=== PATIENT | male | born 1950 | race Caucasian/White ===

== ENCOUNTER 2016-11-04 18:59 | Outpatient (CLI) | payer MEDICARE, OTHER | END 2016-11-04 19:00 | disposition EMS.NT | LOC: EMS 18:59 | PROVIDERS: ATTEND Surgery | DX: Z04.1 Encounter for examination and observation following transport accident (principal); V89.2XXA Person injured in unspecified motor-vehicle accident, traffic, initial encounter; Y92.410 Unspecified street and highway as the place of occurrence of the external cause ==

== ENCOUNTER 2016-11-04 22:12 | Emergency (ER) | payer OTHER, MEDICARE ==
[2016-11-04 22:24] VITALS: BP 145/78
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
== END 2016-11-04 23:25 | disposition home or self-care (01) ==
LOC: ED 22:12
DX: S39.012A Strain of muscle, fascia and tendon of lower back, initial encounter (principal); S29.012A Strain of muscle and tendon of back wall of thorax, initial encounter; V43.62XA Car passenger injured in collision with other type car in traffic accident, initial encounter; Y92.488 Other paved roadways as the place of occurrence of the external cause
CPT/HCPCS: 99283

== ENCOUNTER 2020-08-21 11:43 | Outpatient (CLI) | payer MEDICARE, OTHER ==
[2020-08-21 20:07] LABS: BASOPHILS # (AUTO) 0.1 10^3/uL (0.0-0.1); BASOPHILS % (AUTO) 0.8 %; EOSINOPHILS # (AUTO) 0.1 10^3/uL (0.0-0.7); EOSINOPHILS % (AUTO) 1.5 %; HCT - HEMATOCRIT 43.1 % (42.0-52.0); LYMPHOCYTES # (AUTO) 1.4 10^3/uL (1.5-3.5); MEAN CORPUSCULAR HEMOGLOBIN 30.4 pg (27.0-31.0); MEAN CORPUSCULAR HGB CONC 32.5 g/dL (32.0-36.0); MEAN CORPUSCULAR VOLUME 93.5 fL (80.0-94.0); MEAN PLATELET VOLUME 12.9 fL (7.4-11.4); MONOCYTES # (AUTO) 0.4 10^3/uL (0.0-1.0); MONOCYTES % (AUTO) 6.3 %; NEUTROPHILS % (AUTO) 67.2 %; PLT - PLATELET COUNT 177 10^3/uL (130-450); RED BLOOD COUNT 4.61 10^6/uL (4.70-6.10); RED CELL DISTRIBUTION WIDTH 13.3 % (12.0-15.0)
[2020-08-21 20:25] LABS: ALBUMIN 4.3 g/dL (3.2-5.5); ALBUMIN/GLOBULIN RATIO 1.9 (1.0-2.2); ALKALINE PHOSPHATASE 56 IU/L (42-121); ALT ALANINE AMINOTRANSFERASE 19 IU/L (10-60); AST ASPARTATE AMINOTRANSFERASE 21 IU/L (10-42); BILIRUBIN,TOTAL 0.7 mg/dL (0.2-1.0); BUN - BLOOD UREA NITROGEN 26 mg/dL (6-20); CALCIUM 9.2 mg/dL (8.5-10.3); CARBON DIOXIDE - CO2 28 mmol/L (21-32); CHLORIDE 104 mmol/L (101-111); CHOL/HDL RATIO 2.8 (<5.0); CHOLESTEROL 254 mg/dL; CREATININE 0.7 mg/dL (0.6-1.2); CRP - C-REACTIVE PROTEIN 1.1 mg/dL (0-1.0); GFR - MDRD 111 (>89); GLUCOSE 95 mg/dL (70-100); HDL CHOLESTEROL 92 mg/dL; LDL CHOLESTEROL,CALCULATED 133 mg/dL; LDL CHOLESTEROL,DIRECT 150 mg/dL; LDL/HDL RATIO 1.4 (<3.6); POTASSIUM 4.3 mmol/L (3.5-5.0); SODIUM 138 mmol/L (135-145); TOTAL PROTEIN 6.6 g/dL (6.7-8.2); TRIGLYCERIDES 147 mg/dL; VLDL CHOLESTEROL 29 mg/dL
[2020-08-21 20:30] LABS: PSA TOTAL 3.04 ng/mL (0.000-2.000)
[2020-08-21 20:34] LABS: THYROID STIMULATING HORMONE 1.71 uIU/mL (0.34-5.60)
[2020-08-21 20:38] LABS: ESTIMATED AVERAGE GLUCOSE 111 mg/dL (70-100); HEMOGLOBIN A1c% 5.5 % (4.27-6.07)
[2020-08-21 20:59] LABS: PSA FREE 0.5 ng/mL (0.16-2.81)
[2020-08-25 13:46] LABS: ANA SCREEN NEGATIVE (NEGATIVE)
== END 2020-08-21 11:44 | disposition home or self-care (01) ==
LOC: LAB.S 11:43
PROVIDERS: ATTEND Nurse Practitioner Family
DX: Z01.84 Encounter for antibody response examination (principal); R63.4 Abnormal weight loss; E55.9 Vitamin D deficiency, unspecified; E78.5 Hyperlipidemia, unspecified; R73.9 Hyperglycemia, unspecified
CPT/HCPCS: 36415; 80053; 80061; 82274; 82306; 83036; 83721; 84153; 84154; 84443; 85025; 85651; 86038; 86140; 86769; 87086

== ENCOUNTER 2020-08-23 12:51 | Outpatient (CLI) | payer MEDICARE, OTHER ==
[2020-08-23] MEDS ORDERED: IOPAMIDOL-300 50 ML VIAL PO ONE (14:18)
[2020-08-23] MEDS ORDERED: IOVERSOL 320 100 ML VIAL IVP ONE (14:18)
--- NOTE | 2020-08-23 18:55 | CT Report ---
PROCEDURE: Abdomen/Pelvis W INDICATIONS: BOWEL HABIT CHANGES CONTRAST: IV CONTRAST: Optiray 320 ml: 100 PO CONTRAST: Isovue 300 ml50 TECHNIQUE: After the administration of oral and IV contrast, 5 mm thick sections acquired from the diaphragms to the symphysis. 5 mm thick coronal and sagittal reformats were acquired. For radiation dose reducti on, the following was used: automated exposure control, adjustment of mA and/or kV according to dominga ent size. COMPARISON: None. FINDINGS: Image quality: Excellent. ABDOMEN: Lung bases: Lung bases are clear. Heart size is normal. Solid organs: Liver and spleen are normal in size and enhancement. Simple appearing left liver cysts are seen, with the largest measuring nearly 6 cm. Gallbladder wall does not appear thickened. Audie iary system is non dilated. Pancreas enhances normally. No adrenal nodules. Kidneys demonstrate no rmal size and enhancement, without hydronephrosis. Peritoneum and bowel: Bowel loops demonstrate normal wall thickness and caliber. No free fluid or a ir. Nodes and vessels: No retroperitoneal or mesenteric adenopathy by size criteria. Aorta and inferior vena cava are normal in size. Miscellaneous: No ventral hernias. PELVIS: Genitourinary: Bladder wall thickness is normal. Prostate calcifications can be seen. Miscellaneous: No inguinal hernias or adenopathy. Bones: No suspicious bony lesions. Apparent bone islands can be seen within the bones of the pelvis and the proximal femurs. No vertebral body compression fractures. Grade 1 L5 on S1 anterolisthesis i s seen, with associated bilateral pars defects. There is moderate to severe disc space narrowing at L 5-S1. Milder degenerative changes are seen elsewhere. IMPRESSION: No significant bowel abnormality can be seen. No masses or findings of metastatic disease can be seen. Incidental note is made of: Simple appearing liver cysts Bilateral L5 pars defects, with grade 1 L5-S1 anterolisthesis Focal L5-S1 degenerative change Reviewed by: Rocky Savage MD on 08/23/2020 5:54 PM BHUMIKA Approved by: Rocky Savage MD on 08/23/2020 5:54 PM BHUMIKA Station ID: [id number]
== END 2020-08-23 12:52 | disposition home or self-care (01) ==
LOC: LAB 12:51
PROVIDERS: ATTEND Internal Medicine
DX: R63.4 Abnormal weight loss (principal)
CPT/HCPCS: 74177; Q9967

== ENCOUNTER 2020-09-07 18:20 | Outpatient (CLI) | payer MEDICARE, OTHER | END 2020-09-07 18:21 | disposition home or self-care (01) | LOC: LAB.S 18:20 | PROVIDERS: ATTEND Internal Medicine | DX: Z01.84 Encounter for antibody response examination (principal) | CPT/HCPCS: 86769 ==

== ENCOUNTER 2022-08-01 08:00 | Outpatient (CLI) | payer MEDICARE, OTHER | END 2022-08-01 23:59 | disposition home or self-care (01) | LOC: LAB 08:00 | PROVIDERS: ATTEND Registered Nurse | DX: R63.1 Polydipsia (principal); R30.0 Dysuria; R39.15 Urgency of urination | CPT/HCPCS: 82962; 87086 ==

== ENCOUNTER 2023-08-24 07:17 | Day surgery (SDC) | payer MEDICARE ==
[2023-08-24] MEDS: LACTATED RINGERS 1,000 ML IV ONE ×2 (07:25→09:39)
[2023-08-24] MEDS: KETOROLAC 0.45% OPHTH DROPS ONE (07:45)
[2023-08-24] MEDS: CYCLOPENTOLATE 1% OPHTH DROPS 2 ML ONE (07:45)
[2023-08-24] MEDS: PHENYLEPHRINE 2.5% OPHTH 2 ML DROPS ONE (07:45)
[2023-08-24] MEDS: PROPARACAINE 0.5% OPHTH DROPS 15 ML ONE (07:45)
[2023-08-24] MEDS ORDERED: TRIAMCIN/MOXIFLOX OPHTHALMIC 0.6 ML VIAL IO ONE (08:46)
[2023-08-24] MEDS ORDERED: BSS/LIDOCAINE/EPINEPHRINE 1 ML VIAL ONE (08:46)
[2023-08-24] MEDS ORDERED: BRIMONIDINE 0.2% OPHTH DROPS 5 ML ONE (08:46)
[2023-08-24] MEDS ORDERED: EPINEPHrine 1 MG/ML AMP ONE (08:46)
[2023-08-24] MEDS ORDERED: TIMOLOL 0.5% OPHTH DROPS ONE (08:46)
[2023-08-24] MEDS ORDERED: MIDAZOLAM 2 MG/2 ML VIAL ONE (09:05)
--- NOTE | 2023-08-24 09:08 | ANESTHESIA ---
Pre-Anesthesia VS, & Labs - Diagnosis LEFT EYE CATARACT - Procedure CATARACT EXTRACTION/IOL Vital Signs: Temp Pulse Resp BP Pulse Ox O2 Flow Rate 36.7 C 53 L 22 151/85 H 99 08/24/23 07:40 08/24/23 07:40 08/24/23 07:40 08/24/23 07:40 08/24/23 07:40 Height: 4 ft 11 in Weight (kg): 80 kg Body Mass Index: 35.6 BMI Classification: Obese - NPO >8 hours Home Medications and Allergies No Known Home Medications 11/04/16 Allergies/Adverse Reactions: Allergies Allergy/AdvReac Type Severity Reaction Status Date / Time No Known Drug Allergies Allergy Verified 08/24/23 07:32 Anes History & Medical History - Anesthetic History Anesthesia Complications: reports: No previous complications - Medical History Cardiovascular: reports: None Pulmonary: reports: None Gastrointestinal: reports: None Urinary: reports: None Neuro: reports: Dementia Musculoskeletal: reports: None Endocrine/Autoimmune: reports: None Skin: reports: None Smoking Status: Never smoker Psychosocial: reports: No issues indicated - Surgical History General: reports: Appendectomy Exam General: Alert (CONFUSED AT TIMES/DEMENTIA) Dental: WNL Mouth Openin Fingerbreadth Neck Mobility: Reduced Mallampati classification: II Thyromental Distance: 4-6 cm Plan Anesthesia Type: MAC Consent for Procedure(s) Verified and Reviewed: Yes Code Status: Attempt Resuscitation ASA classification: 2-Mild systemic disease Is this case an emergency?: No
[2023-08-24] MEDS ORDERED: fentaNYL 100 MCG/2 ML VIAL ONE (09:22)
[2023-08-24] MEDS: BRIMONIDINE 0.2% OPHTH DROPS 5 ML OPTH ONE (09:27)
[2023-08-24] MEDS: PROPARACAINE 0.5% OPHTH DROPS 15 ML LEFTEYE ONE (09:28)
[2023-08-24] MEDS: EPINEPHrine 1 MG/ML AMP IR ONE (09:28)
[2023-08-24] MEDS: BSS/LIDOCAINE/EPINEPHRINE 1 ML SYRINGE IO ONE (09:28)
[2023-08-24] MEDS: TIMOLOL 0.5% OPHTH DROPS OPTH ONE (09:28)
[2023-08-24] MEDS: TRIAMCIN/MOXIFLOX OPHTHALMIC 0.6 ML VIAL IO ONE (09:28)
[2023-08-24] MEDS: VANCOMYCIN OPHTH (TOPICAL) 10 MG/ML SYRINGE TOP ONE (09:29)
--- NOTE | 2023-08-24 09:36 | OPERATIVE REPORT ---
Operative Report - Other Other Information/Narrative: Date of Surgery: 08/24/23 Preop Dx: Visually significant cataract left eye. This was the first cataract surgery. Postop Dx: Same Procedure: Phacoemulsification with posterior chamber intraocular lens implant left eye Surgeon: Dr. Christopher Torres Anesthesia: Monitored anesthesia care Complications: None Operative Indications: This is a 73-year-old M with progressive vision loss in the left eye due to 4+ nuclear sclerotic cataract. Best corrected visual acuity was 20/20 with glare to 20/60 vision in the left eye. Indications for surgery were: - Overall decrease in vision - Difficulty seeing words on a computer screen - Difficulty reading - Difficulty seeing words, closed captions, or game scores on TV The patient was consented at length concerning the risks and benefits of cataract surgery after which the patient expressed a desire to proceed with surgery. Operative Procedure: The patient was taken into OR#3 and placed under monitored anesthesia care. A surgical time-out was conducted confirming correct patient, correct procedure, and correct surgical site. The patient was given topical anesthesia and then prepped and draped in the usual sterile fashion. The eye was entered at the 6 and 3 oclock positions. Intracameral Shugarcaine was injected into the anterior chamber followed by a dispersive viscoelastic. A cont inuous-tear curvilinear capsulorhexis was performed. The nucleus was hydrodissected and phacoemulsified. The cortex was evacuated using automated infusion and aspiration. A cohesive viscoelastic was injected into the capsular bag and a 19.5 diopter intraocular lens was inserted into the bag. Infusion and aspiration were used to evacuate the viscoelastic materials from the eye. The wounds were hydrated and the eye inflated to physiologic pressure using balanced salt solution. Approximately 0.25ml of a mixture of triamcinolone and moxifloxacin was injected trans-sclerally into the vitreous in the inferotemporal quadrant using a 30 gauge cannula. An additional 0.25ml of a mixture of triamcinolone and moxifloxacin was injected subconjunctivally in the superior quadrant for infection and inflammation prophylaxis. Wound integrity was checked with Weck-Enriqueta sponges. The patient was taken from the operating room in good condition and given post-op instructions.
[2023-08-24 09:58] VITALS: BP 136/86; O2SAT 98
--- NOTE | 2023-08-24 10:40 | ANESTHESIA POST OP EVALUATION ---
Anesthesia Post Eval - Post Anesthesia Eval Vitals: Last Vital Signs Temp 36.7 C 08/24/23 09:50 Pulse 62 08/24/23 09:50 Resp 14 08/24/23 09:50 BP 136/86 H 08/24/23 09:50 Pulse Ox 98 08/24/23 09:50 O2 Flow Rate CV Function Including HR & BP: Stable Pain Control: Satisfactory Nausea & Vomiting: Negative Mental Status: Baseline Respiratory Status: Airway Patent Hydration Status: Satisfactory Anesthesia Complications: None
== END 2023-08-24 07:18 | disposition home or self-care (01) ==
LOC: SDS 07:17
PROVIDERS: ATTEND Ophthalmology
DX: H25.12 Age-related nuclear cataract, left eye (principal); E66.9 Obesity, unspecified; Z68.35 Body mass index [BMI] 35.0-35.9, adult
CPT/HCPCS: 66984; A9270; J3490; J7120

== ENCOUNTER 2023-10-05 08:48 | Day surgery (SDC) | payer MEDICARE ==
[2023-10-05] MEDS: LACTATED RINGERS 1,000 ML IV ONE (08:58)
[2023-10-05] MEDS: PROPARACAINE 0.5% OPHTH DROPS 15 ML ONE (09:12)
[2023-10-05] MEDS: CYCLOPENTOLATE 1% OPHTH DROPS 2 ML ONE (09:17)
[2023-10-05] MEDS: PHENYLEPHRINE 2.5% OPHTH 2 ML DROPS ONE (09:17)
--- NOTE | 2023-10-05 09:57 | ANESTHESIA ---
Pre-Anesthesia VS, & Labs - Diagnosis NUCLEAR CATARACT, RIGHT - Procedure EXTRACTION CATARACT WITH LENS IMPLANT Vital Signs: Temp Pulse Resp BP Pulse Ox O2 Flow Rate 36.9 C 59 L 20 127/80 98 10/05/23 09:04 10/05/23 09:04 10/05/23 09:04 10/05/23 09:04 10/05/23 09:04 Height: 5 ft 11 in Weight (kg): 79.2 kg Body Mass Index: 24.3 BMI Classification: Normal - NPO >8 hours Home Medications and Allergies No Known Home Medications 11/04/16 Allergies/Adverse Reactions: Allergies Allergy/AdvReac Type Severity Reaction Status Date / Time No Known Drug Allergies Allergy Verified 10/04/23 11:10 Anes History & Medical History - Anesthetic History Anesthesia Complications: reports: No previous complications Family history of Anesthesia Complications: Denies Family history of Malignant Hyperthermia: Denies - Medical History Cardiovascular: reports: None Pulmonary: reports: None Gastrointestinal: reports: None Urinary: reports: None Neuro: reports: Dementia Musculoskeletal: reports: None Endocrine/Autoimmune: reports: None Skin: reports: None Smoking Status: Never smoker Psychosocial: reports: No issues indicated History of Cancer?: No - Surgical History General: reports: Appendectomy Results - EKG Results EKG Comparison: Reviewed EKG, Normal EKG Exam General: Alert, Oriented x3, Cooperative, No acute distress Dental: WNL Mouth Openin Fingerbreadth Neck Mobility: Normal Mallampati classification: IV Thyromental Distance: 4-6 cm Mental/Cognitive Status: Alert/Oriented X3, Normal for patient Cognitive Status: Within normal limits Plan Anesthesia Type: MAC Consent for Procedure(s) Verified and Reviewed: Yes Code Status: Attempt Resuscitation ASA classification: 2-Mild systemic disease Is this case an emergency?: No
[2023-10-05] MEDS ORDERED: BRIMONIDINE 0.2% OPHTH DROPS 5 ML ONE (10:25)
[2023-10-05] MEDS ORDERED: TRIAMCIN/MOXIFLOX OPHTHALMIC 0.6 ML VIAL IO ONE (10:25)
[2023-10-05] MEDS ORDERED: EPINEPHrine 1 MG/ML AMP ONE (10:25)
[2023-10-05] MEDS ORDERED: BSS/LIDOCAINE/EPINEPHRINE 1 ML VIAL ONE (10:25)
[2023-10-05] MEDS ORDERED: TIMOLOL 0.5% OPHTH DROPS ONE (10:25)
[2023-10-05] MEDS ORDERED: fentaNYL 100 MCG/2 ML VIAL ONE (11:03)
[2023-10-05] MEDS ORDERED: PROPOFOL 200 MG/20 ML VIAL IVP ONE (11:05)
[2023-10-05] MEDS: TRIAMCIN/MOXIFLOX OPHTHALMIC 0.6 ML VIAL IO ONE (11:06)
[2023-10-05] MEDS: EPINEPHrine 1 MG/ML AMP IR ONE (11:06)
[2023-10-05] MEDS: BRIMONIDINE 0.2% OPHTH DROPS 5 ML OPTH ONE (11:06)
[2023-10-05] MEDS: PROPARACAINE 0.5% OPHTH DROPS 15 ML EACHEYE ONE (11:06)
[2023-10-05] MEDS: BSS/LIDOCAINE/EPINEPHRINE 1 ML SYRINGE IO ONE (11:06)
[2023-10-05] MEDS: TIMOLOL 0.5% OPHTH DROPS OPTH ONE (11:06)
[2023-10-05] MEDS: VANCOMYCIN OPHTH (TOPICAL) 10 MG/ML SYRINGE TOP ONE (11:07)
[2023-10-05] MEDS: LACTATED RINGERS 800 ML IV ONE (11:20)
--- NOTE | 2023-10-05 11:22 | OPERATIVE REPORT ---
Operative Report - Other Other Information/Narrative: Date of Surgery: 10/05/23 Preop Dx: Visually significant cataract right eye. Cataract surgery was performed in the left eye on . Postop Dx: Same Procedure: Phacoemulsification with posterior chamber intraocular lens implant right eye Surgeon: Dr. Christopher Torres Anesthesia: Monitored anesthesia care Complications: None Operative Indications: This is a 73-year-old M with progressive vision loss in the right eye due to 3+ nuclear sclerotic cataract. Best corrected visual acuity was 20/20 with glare to 20/50 vision in the right eye. Indications for surgery were: - Overall decrease in vision - Difficulty seeing words on a computer screen - Difficulty reading The patient was consented at length concerning the risks and benefits of cataract surgery after which the patient expressed a desire to proceed with surgery. Operative Procedure: The patient was taken into OR#3 and placed under monitored anesthesia care. A surgical time-out was conducted confirming correct patient, correct procedure, and correct surgical site. The patient was given topical anesthesia and then prepped and draped in the usual sterile fashion. The eye was entered at the 6 and 3 oclock positions. Intracameral Shugarcaine was injected into the anterior chamber followed by a dispersive viscoelastic. A continuous-tear curvilinear capsulorhexis was performed. The nucleus was hydrodissected and phacoemulsified. The cortex was evacuated using automated infusion and aspiration. A cohesive viscoelastic was injected into the capsular bag and a 21.5 diopter intraocular lens was inserted into the bag. Infusion and aspiration were used to evacuate the viscoelastic materials from the eye. The wounds were hydrated and the eye inflated to physiologic pressure using balanced salt solution. Approximately 0.25ml of a mixture of triamcinolone and moxifloxacin was injected trans-sclerally into the vitreous in the inferotemporal quadrant using a 30 gauge cannula. An additional 0.25ml of a mixture of triamcinolone and moxifloxacin was injected subconjunctivally in the superior quadrant for infection and inflammation prophylaxis. Wound integrity was checked with Weck-Enriqueta sponges. The patient was taken from the operating room in good condition and given post-op instructions.
[2023-10-05 11:53] VITALS: BP 137/82; O2SAT 95
--- NOTE | 2023-10-05 12:59 | ANESTHESIA POST OP EVALUATION ---
Anesthesia Post Eval - Post Anesthesia Eval Vitals: Last Vital Signs Temp 36.6 C 10/05/23 11:40 Pulse 54 L 10/05/23 11:40 Resp 14 10/05/23 11:40 BP 137/82 H 10/05/23 11:40 Pulse Ox 95 10/05/23 11:40 O2 Flow Rate CV Function Including HR & BP: Stable Pain Control: Satisfactory Nausea & Vomiting: Negative Mental Status: Baseline Respiratory Status: Airway Patent Hydration Status: Satisfactory Anesthesia Complications: None
== END 2023-10-05 08:49 | disposition home or self-care (01) ==
LOC: SDS 08:48
PROVIDERS: ATTEND Ophthalmology
DX: H25.11 Age-related nuclear cataract, right eye (principal); G30.9 Alzheimer's disease, unspecified; F02.80 Dementia in other diseases classified elsewhere, unspecified severity, without behavioral disturbance, psychotic disturbance, mood disturbance, and anxiety; Z98.42 Cataract extraction status, left eye
CPT/HCPCS: 66984; A9270; J3490; J7120